=== PATIENT | female | born 1960 | race Caucasian/White ===

== ENCOUNTER 2023-05-19 15:56 | Outpatient (CLI) | payer OTHER | END 2023-05-19 15:57 | disposition home or self-care (01) | LOC: CSHULT 15:56 | PROVIDERS: ATTEND Family Medicine | DX: N95.0 Postmenopausal bleeding (principal); R93.89 Abnormal findings on diagnostic imaging of other specified body structures | CPT/HCPCS: 76856 ==

== ENCOUNTER 2023-06-18 08:08 | Outpatient (CLI) | payer OTHER | END 2023-06-18 08:09 | disposition home or self-care (01) | LOC: CSHLAB 08:08 | PROVIDERS: ATTEND Obstetrics & Gynecology | DX: Z01.812 Encounter for preprocedural laboratory examination (principal); R93.89 Abnormal findings on diagnostic imaging of other specified body structures; N95.0 Postmenopausal bleeding | CPT/HCPCS: 80048; 85027; 86850; 86900; 86901 ==